=== PATIENT | female | born 1990 | race Caucasian/White ===

== ENCOUNTER 2024-02-12 09:28 | Emergency (ER) | payer OTHER, MEDICARE, SELFPAY ==
[2024-02-12 09:32] VITALS: BP 137/90
[2024-02-12 10:02] LABS: Urine Albumin Negative (Neg - Trace); Urine Bilirubin Negative (Negative); Urine Character Clear (Clear); Urine Color Yellow; Urine Glucose Negative (Negative); Urine Ketone Negative (Negative); Urine Leukocyte Negative (Negative); Urine Nitrite Negative (Negative); Urine Occult Blood Trace (Negative); Urine Specific Gravity 1.025 (<1.030); Urine Urobilinogen Negative (Neg - 1+)
--- NOTE | 2024-02-12 10:08 | ED.GENMED ---
History of Present Illness
General
Chief Complaint: Urinary Symptoms
Source: patient
Time Seen by Provider: 02/12/24 09:48
Travel History
Have you had any contact with someone who has COVID-19?: No
Do you have any symptoms of coronavirus? Fever > 100 degrees, chills, cough, shortness of breath, sore throat, loss of taste or smell, muscle aches, or headache?: No
History of Present Illness
History of Present Illness:
This patient is a 33-year-old female presents emergency department complaints of urinary frequency and urgency that she has had for years. She describes having to urinate several times an hour. She has seen her urologist, and feels that she needs
to have her kidney stone removed, but the urologist declines to do this which frustrates her because she feels that the stone is the reason for her frequency and urgency. She presents to the ER seeking a new consultation. Recently, patient was
diagnosed with a UTI at an urgent care and took antibiotics for approximately 1 week. She finished that antibiotic approximately 1 week ago, does not recall the name of it. She denies dysuria, flank pain, fever, chills, nausea, vomiting. She has
chronic 'bladder spasm' and states that medication she has been prescribed for that is not helpful. She also just started her menstrual period today, last menstruation was approximately 1 month ago.
Past History
Past History
ED Past Medical History: Other (Kidney stone, asthma, palpitations, PCOS, hypotension)
Social History
Tobacco: Non-smoker
Alcohol: None
Drug: None
Living: other (With boyfriend)
Phy Exam
Physical Exam
Physical Exam:
GENERAL: Alert , in no apparent distress
EYE: pupils equal and reactive
NECK: Supple, no significant adenopathy.
ENT: o/p clr, mmm.
CARDIAC: Regular rate and rhythm .
LUNGS: Clear breath sounds bilaterally, no acute respiratory distress, no wheezes/rales/rhonchi
ABDOMEN: Soft, without focal tenderness, no r/g, no cvat
NEUROLOGICAL: Alert and oriented, no focal neuro deficits
SKIN: Warm and dry, skin intact.
MUSCULOSKELETAL: No edema, well perfused.
PSYCH: Normal and appropriate interaction.
Course
Orders/Labs/Results
Orders:
Orders
02/12/24 09:44
HCG, Urine Qualitative Screen Urgent
Date Specimen was Collected: 02/12/24
Time Specimen was Collected: 09:36
Urinalysis Reflex To Culture Urgent
Date Specimen was Collected: 02/12/24
Time Specimen was Collected: 09:36
Urine Microscopic Reflex Cult Urgent
02/12/24 10:07
HCG, Urine Qualitative Screen Urgent
Test Result ONCE
US Kidneys [US Renal Only W/O Bladder] Urgent
Comment:
Reason For Exam: HX r KIDNEY STONE
02/12/24 11:16
Add On- LAB Urgent
Tests Added?: HCG-Urine
Abnormal Lab Results
02/12/24
09:44
Ur Occult Blood Reflex Trace A
(Negative)
Vital Signs
Initial and Last Documented VS:
Initial Vital Signs
Temp Pulse Resp BP Pulse Ox
98.3 F 96 20 137/90 100
02/12/24 09:32 02/12/24 09:32 02/12/24 09:32 02/12/24 09:32 02/12/24 09:32
Last Documented Vital Signs
Temp Pulse Resp BP Pulse Ox
98.3 F 96 20 137/90 100
02/12/24 09:32 02/12/24 09:32 02/12/24 09:32 02/12/24 09:32 02/12/24 09:32
*Critical Care Note
Total Time (30-74mins, 75-104mins- exclusive of procedures): Not Applicable
Update Note
Update Note:
Patient presents to the Emergency Department with urinary frequency and urgency
Number and Complexity of Problems Addressed at the Encounter
� Chronic conditions affecting care:
� Acute Exacerbation and/or Progression of Chronic Illness:
� Differential Diagnosis includes: But not limited to, bladder spasm, interstitial cystitis, UTI, kidney stone related, etc.
Amount and/or Complexity of Data to be Reviewed and Analyzed
� I performed an independent evaluation of and my interpretation is:
EKG:
CT:
Xrays:
Laboratory Studies: ua tr blood, likely related to menses
Other:4 mm echogenicity within the central mid right kidney, compatible with a nephrolith.
No evidence for pelvicalyceal dilation of either kidney.
Normal sonographic appearance of the left kidney.
� Review of other/old records reveals:
� Clinical information was obtained by an independent historian:
� Prescriptions/Medications Considered but not given:
� Further testing considered but not performed:
Risk of Complications and/or Morbidity or Mortality of Patient Management
� Social determinants of health affecting care:
� Discussion with other providers (PCP, Hospitalists, Consultants, etc):
� Escalation of care including admission/observation vs risk of discharge considered:
ED Attending Note
-
Portions of this chart may have been created with voice recognition software.� Occasional wrong word or��sound alike� substitutions may have occurred due to the inherent limitations of voice recognition software.
Discharge Plan
Departure
Patient Disposition: Home (Routine Discharge)
Date of Disposition: 02/12/24
Time of Disposition: 11:44
Patient with high blood pressure during this ER visit?: Yes
Condition: Good
Discharge Problem:
Kidney calculi
Instructions: Kidney Stone, Adult ED, BLOOD PRESSURE
Referrals:
Stan Montana MD [Active] - Next open appointment
NONE,* [Family Provider] -
Activity Restrictions/Additional Instructions:
IF YOU DEVELOP SEVERE BACK/ABDOMINAL PAIN, FEVER, VOMITING, DIFFICULTY URINATING, PAIN WITH URINATION OR OTHER WORRISOME SIGNS, GO TO THE ER IMMEDIATELY!
Discharge Date and Time
Print Language: BOLIVIAN
[2024-02-12 10:45] LABS: Urine Squamous Cell >30 /LPF (Few)
[2024-02-12 10:46] LABS: Urine Red Blood Cell 0-2 /HPF (0-2); Urine White Cell 0-2 /HPF (0-5)
[2024-02-12 11:37] LABS: HCG, Urine Qualitative Screen Negative
== END 2024-02-12 12:19 | disposition home or self-care (01) ==
LOC: EMR 09:28
PROVIDERS: Emergency Medicine; EMERGENCY PHYSICIAN Emergency Medicine
DX: N20.0 Calculus of kidney (principal); J45.909 Unspecified asthma, uncomplicated; E28.2 Polycystic ovarian syndrome; Z87.440 Personal history of urinary (tract) infections; Z87.442 Personal history of urinary calculi; Z88.8 Allergy status to other drugs, medicaments and biological substances
CPT/HCPCS: 99284; 76775; 81003; 81015; 81025